=== PATIENT | male | born 1955 | race Caucasian/White ===

== ENCOUNTER 2017-03-25 07:05 | Inpatient (IN) | payer BC, OTHER ==
[2017-03-25] VITALS (15 sets, daily range): BP systolic 111–140; BP diastolic 76–100; PULSE 77–116; RESP 14–20; TEMP 97.6–98.6; O2SAT 98–100
[~2017-03-25] VITALS: Ht 190.5 cm; Wt 113.0 kg
[2017-03-25 08:01] LABS: AUTOMATED NEUTROPHIL # 4.5 TH/MM3 (1.8-7.7); BASOPHIL # 0.1 TH/MM3 (0-0.2); BASOPHIL % 0.8 % (0.0-2.0); EOSINOPHIL # 0.1 TH/MM3 (0-0.4); HEMATOCRIT 43.6 % (39.0-51.0); HEMOGLOBIN 14.4 GM/DL (13.0-17.0); LYMPH % 25.1 % (9.0-44.0); LYMPHOCYTE # 1.8 TH/MM3 (1.0-4.8); MEAN CELL VOLUME 96.9 FL (80.0-100.0); MEAN CORPUSCULAR HEMOGLOBIN 31.9 PG (27.0-34.0); MEAN PLATELET VOLUME 8.1 FL (7.0-11.0); MONO % 10.5 % (0.0-8.0); MONOCYTE # 0.8 TH/MM3 (0-0.9); NEUT % 62.6 % (16.0-70.0); PLATELET COUNT 267 TH/MM3 (150-450); RED CELL DISTRIBUTION WIDTH 15.1 % (11.6-17.2); WHITE BLOOD COUNT 7.2 TH/MM3 (4.0-11.0)
[2017-03-25 08:11] LABS: INTERNATIONAL NORMALIZED RATIO 1.2 RATIO; PROTHROMBIN TIME - PATIENT 12.6 SEC (9.8-11.6)
[2017-03-25 08:23] LABS: ALBUMIN 3.3 GM/DL (3.4-5.0); ALT (GPT) 54 U/L (12-78); AST (GOT) 38 U/L (15-37); BICARBONATE 25.5 MEQ/L (21.0-32.0); BLOOD UREA NITROGEN 22 MG/DL (7-18); CALCIUM 8.3 MG/DL (8.5-10.1); CHLORIDE 108 MEQ/L (98-107); GLOMERULAR FILTRATION RATE 56 ML/MIN (>89); GLUCOSE,RANDOM 104 MG/DL (74-106); SODIUM (NA) 141 MEQ/L (136-145)
--- NOTE | 2017-03-25 08:26 | RADRPT ---
EXAM DATE/TIME: 03/25/2017 07:40 [facility] COMPARISON: No previous studies available for comparison. INDICATIONS : Short of breath. MEDICAL HISTORY : A-fib. SURGICAL HISTORY : CABG. ENCOUNTER: Initial ACUITY: 3 weeks PAIN SCORE: 0/10 LOCATION: Bilateral chest FINDINGS: Single AP view of the chest. Prosthetic cardiac valve. Mild cardiac silhouette enlargement. Median st ernotomy wires. Lungs clear. No evidence of pleural effusion or pneumothorax. CONCLUSION: Mild cardiac silhouette enlargement. No acute cardiopulmonary disease identified. Ad Trimble MD on March 25, 2017 at 8:22 Board Certified Radiologist. This report was verified electronically.
[2017-03-25 08:32] LABS: ALKALINE PHOSPHATASE 115 U/L (45-117); TOTAL BILIRUBIN ADULT 0.6 MG/DL (0.2-1.0); TOTAL PROTEIN 7.7 GM/DL (6.4-8.2); TROPONIN I 0.05 NG/ML (0.02-0.05)
[2017-03-25] MEDS ORDERED: IOHEXOL 350 MG/ML 10 ML VIAL (for RAD DIAG) IVCONTRAST ONE (08:50)
--- NOTE | 2017-03-25 09:08 | RADRPT ---
EXAM DATE/TIME: 03/25/2017 08:30 [facility] COMPARISON: No previous studies available for comparison. INDICATIONS : Cough, chest tightness, sob IV CONTRAST: 70 cc Omnipaque 350 (iohexol) IV RADIATION DOSE: 34.52 CTDIvol (mGy) MEDICAL HISTORY : Cardiovascular disease. Afib SURGICAL HISTORY : CABG Valve replacement, CABGx 5 ENCOUNTER: Initial ACUITY: 1 week PAIN SCALE: 5/10 LOCATION: TECHNIQUE: Volumetric scanning of the chest was performed using a pulmonary embolism protocol MIP images were re constructed. Using automated exposure control and adjustment of the mA and/or kV according to patien t size, radiation dose was kept as low as reasonably achievable to obtain optimal diagnostic quality images. DICOM format image data is available electronically for review and comparison. Follow-up recommendations for detected pulmonary nodules are based at a minimum on nodule size and pa tient risk factors according to Fleischner Society Guidelines. FINDINGS: PULMONARY ARTERIES: There is cut off of enhancement of the posterior basilar ranges of the left pulmonary artery in the l ower lobe. No other filling defects are identified on the right or left. LUNGS: Mild groundglass opacity in the lungs bilaterally indicating possible mild pulmonary edema. PLEURAE: Very small bilateral pleural effusions. MEDIASTINUM: Coronary artery calcification. Multiple mildly prominent mediastinal lymph nodes are likely reactive, measuring less than 1 cm in short axis dimension. Prosthetic mitral valve. MUSCULOSKELETAL: Within normal limits for patient age. MISCELLANEOUS: The visualized upper abdominal organs demonstrate no acute abnormality. CONCLUSION: 1. Evidence of pulmonary emboli in the posterior branches of the left lower lobe. 2. Coronary artery calcification. 3. Very small bilateral pleural effusions and possible mild pulmonary edema. Ad Trimble MD on March 25, 2017 at 8:52 Board Certified Radiologist. This report was verified electronically.
[2017-03-25] MEDS ORDERED: HEPARIN SODIUM - IV 10,000 UNITS/10 ML VIAL IV PUSH ONE (09:30)
[2017-03-25] MEDS ORDERED: DILTIAZEM HCL 25 MG/5 ML VIAL IV ONE (09:30)
--- NOTE | 2017-03-25 09:37 | PD ---
HPI Chief Complaint: Cardiac Complaint Time Seen by Provider: 07:24 Travel History International Travel<30 days: No Contact w/Intl Traveler<30days: No Traveled to known affect area: No History of Present Illness HPI Patient is a 61 year old male, who reports history of CABG with 2 valve replacements, afib, who comes in complaining of SOB. He says he has not been feeling well for 3 weeks. He says he took some Penicillin a little while ago, but this did not help his symptoms. He says he came in today because he was unable to sleep last night because he was unable to breath. He says he is not on any anticoagulation or rate control medications. He denies any chest pain. He says he is short of breath on exertion. He denies leg swelling or leg pain. He says that he has flown back and forth from [place] a few times recently. Nothing seems to make his symptoms better. PFSH Past Medical History Atrial Fibrillation: Yes Past Surgical History Coronary Artery Bypass Graft: Yes Valve Replacement: Yes Social History Alcohol Use: No Tobacco Use: No Substance Use: No Allergies-Medications (Allergen,Severity, Reaction): Coded Allergies: No Allergy Information Available (Unverified , 03/25/17) Review of Systems Except as stated in HPI: all other systems reviewed are Neg General / Constitutional: No: Fever, Chills HENT: Positive: Congestion, No: Headaches Cardiovascular: Positive: Palpitations, No: Chest Pain or Discomfort Respiratory: Positive: Cough, Shortness of Breath Gastrointestinal: No: Nausea, Vomiting Genitourinary: No: Dysuria Musculoskeletal: No: Myalgias, Edema Skin: No Rash, No Change in Pigmentation Neurologic: No: Weakness, Dizziness, Syncope Physical Exam Narrative GENERAL: Awake and alert, in no acute distress. SKIN: Focused skin assessment warm/dry. No wounds or signs of infection. HEAD: Atraumatic. Normocephalic. EYES: Pupils equal and round. No scleral icterus. Extraocular movements intact. ENT: Mucous membranes pink and moist. NECK: Trachea midline. No JVD. CARDIOVASCULAR: Tachycardia. No murmur appreciated. RESPIRATORY: No accessory muscle use. Clear to auscultation. Breath sounds equal bilaterally. GASTROINTESTINAL: Abdomen soft, non-tender, nondistended. MUSCULOSKELETAL: No obvious deformities. No clubbing. No cyanosis. No edema. NEUROLOGICAL: Awake and alert. No obvious cranial nerve deficits. Motor grossly within normal limits. Normal speech. PSYCHIATRIC: Appropriate mood and affect; insight and judgment normal. Data Data Last Documented VS Vital Signs Date Time Temp Pulse Resp B/P (MAP) Pulse Ox O2 Delivery O2 Flow Rate FiO2 03/25/17 09:18 110 19 126/89 (101) 100 Room Air 03/25/17 08:52 98.2 Orders Orders Complete Blood Count With Diff (03/25/17 07:31) Comprehensive Metabolic Panel (03/25/17 07:31) B-Type Natriuretic Peptide (03/25/17 07:31) Act Partial Throm Time (Ptt) (03/25/17 07:31) Prothrombin Time / Inr (Pt) (03/25/17 07:31) Troponin I (03/25/17 07:31) Iv Access Insert/Monitor (03/25/17 07:31) Ecg Monitoring (03/25/17 07:31) Oximetry (03/25/17 07:31) Oxygen Administration (03/25/17 07:31) Chest, Single Ap (03/25/17 07:31) Ct Pulmonary Angiogram (03/25/17 07:31) Electrocardiogram (03/25/17 07:20) Iohexol 350 Inj (Omnipaque 350 Inj) (03/25/17 08:50) Heparin Inj (Heparin Inj) (03/25/17 09:30) Heparin-D5w 25,000 U/250 Ml (Heparin-D5w (03/25/17 09:30) Cbc No Diff, Includes Plts (03/28/17 06:00) Act Partial Throm Time (Ptt) (03/25/17 16:16) Occult Blood (Hemoccult) Stool (03/25/17 09:16) Diltiazem Inj (Cardizem Inj) (03/25/17 09:30) Labs Laboratory Tests Test 03/25/17 07:42 White Blood Count 7.2 TH/MM3 Red Blood Count 4.50 MIL/MM3 Hemoglobin 14.4 GM/DL Hematocrit 43.6 % Mean Corpuscular Volume 96.9 FL Mean Corpuscular Hemoglobin 31.9 PG Mean Corpuscular Hemoglobin Concent 33.0 % Red Cell Distribution Width 15.1 % Platelet Count 267 TH/MM3 Mean Platelet Volume 8.1 FL Neutrophils (%) (Auto) 62.6 % Lymphocytes (%) (Auto) 25.1 % Monocytes (%) (Auto) 10.5 % Eosinophils (%) (Auto) 1.0 % Basophils (%) (Auto) 0.8 % Neutrophils # (Auto) 4.5 TH/MM3 Lymphocytes # (Auto) 1.8 TH/MM3 Monocytes # (Auto) 0.8 TH/MM3 Eosinophils # (Auto) 0.1 TH/MM3 Basophils # (Auto) 0.1 TH/MM3 CBC Comment DIFF FINAL Differential Comment Prothrombin Time 12.6 SEC Prothromb Time International Ratio 1.2 RATIO Activated Partial Thromboplast Time 26.1 SEC Blood Urea Nitrogen 22 MG/DL Creatinine 1.30 MG/DL Random Glucose 104 MG/DL Total Protein 7.7 GM/DL Albumin 3.3 GM/DL Calcium Level 8.3 MG/DL Alkaline Phosphatase 115 U/L Aspartate Amino Transf (AST/SGOT) 38 U/L Alanine Aminotransferase (ALT/SGPT) 54 U/L Total Bilirubin 0.6 MG/DL Sodium Level 141 MEQ/L Potassium Level 4.3 MEQ/L Chloride Level 108 MEQ/L Carbon Dioxide Level 25.5 MEQ/L Anion Gap 8 MEQ/L Estimat Glomerular Filtration Rate 56 ML/MIN Troponin I 0.05 NG/ML B-Type Natriuretic Peptide 270 PG/ML MDM Medical Decision Making Medical Screen Exam Complete: Yes Emergency Medical Condition: Yes Interpretation(s) ECG shows atrial fibrillation at a rate of 118. Differential Diagnosis PE versus A. fib with RVR versus electrolyte abnormality versus ACS Narrative Course Patient is a 61-year-old male with history of A. fib, CABG, 2 valve replacements , not on anticoagulation, who comes in complaining of shortness of breath. Exam shows tachycardia. ECG shows A. fib with RVR. IV established, labs sent. CTA performed shows evidence of pulmonary embolus. Last 24 hours Impressions Chest X-Ray 03/25/17730 Signed Impressions: Service Date/Time: Saturday, March 25, 2017 07:40 - CONCLUSION: Mild cardiac silhouette enlargement. No acute cardiopulmonary disease identified. Ad Trimble MD CT Angiography 03/25/1731 Signed Impressions: Service Date/Time: Saturday, March 25, 2017 08:30 - CONCLUSION: 1. Evidence of pulmonary emboli in the posterior branches of the left lower lobe. 2. Coronary artery calcification. 3. Very small bilateral pleural effusions and possible mild pulmonary edema. Ad Trimble MD Patient started on heparin. Given a dose of Cardizem. Patient also has evidence of CHF. He'll be admitted for further management. Diagnosis Primary Impression: Pulmonary emboli Qualified Codes: I26.99 - Other pulmonary embolism without acute cor pulmonale Additional Impressions: Atrial fibrillation with RVR CHF (congestive heart failure) Qualified Codes: I50.9 - Heart failure, unspecified Admitting Information Admitting Physician Requests: it Angelita Gray MD Mar 25, 2017 09:37
[2017-03-25] MEDS: HEPARIN-D5W 25,000 U/250 ML 250 ML IV PRN ×2 (09:41→23:30)
[2017-03-25] MEDS ORDERED: SODIUM CHLORIDE 0.9% FLUSH 10 ML FLUSH IV FLUSH PRN (11:30)
[2017-03-25] MEDS ORDERED: ONDANSETRON HCL 4 MG/2 ML VIAL IVP PRN (11:30)
[2017-03-25] MEDS ORDERED: SENNOSIDES 8.6 MG TAB PO PRN (11:30)
[2017-03-25] MEDS ORDERED: BISACODYL 10 MG SUPP RECTAL PRN (11:30)
[2017-03-25] MEDS ORDERED: NALOXONE HCL 0.4 MG/ML AMP IV PUSH PRN (11:30)
[2017-03-25] MEDS ORDERED: MAGNESIUM HYDROXIDE SUSP 30 ML CUP PO PRN (11:30)
[2017-03-25] MEDS ORDERED: ACETAMINOPHEN 325 MG TAB PO PRN (11:30)
[2017-03-25] MEDS ORDERED: LACTULOSE SYRUP 20 GM/30 ML CUP PO PRN (11:30)
--- NOTE | 2017-03-25 11:43 | HHI.HP ---
[facility] Service [facility] Primary Care Physician No Primary Care Physician Admission Diagnosis Afib with RVR, PE Diagnoses: Travel History International Travel<30 Days: No Contact w/Intl Traveler <30 Da: No Traveled to Known Affected Are: No History of Present Illness 61-year-old male with a past medical history significant for CAD status post CABG 6 months ago and a lifelong history of atrial fibrillation not on any anticoagulation presents to the emergency department with a one-week history of worsening shortness of breath. The patient reports that he has extreme shortness of breath when lying down that is interfering with his sleep. He also states he has dyspnea on exertion. He reports he just recovered from an upper respiratory infection. The patient was found to be in atrial fibrillation with RVR on arrival to the emergency department. He was given 1 dose of IV diltiazem with subsequent weight control. CTA showed pulmonary emboli in the posterior branches of the left lower lobe. Review of Systems Denies fever or chills Denies blurry vision, otorrhea, rhinorrhea Denies sore throat and cough No chest pain, palpitations, positive shortness of breath No abdominal pain Denies constipation/diarrhea/nausea/vomiting Denies muscle pain/weakness No rashes Past Family Social History Past Medical History Atrial fibrillation Coronary artery disease Past Surgical History Status post CABG 4 with AVR, MVR 6 months ago Reported Medications None Allergies: Coded Allergies: No Allergy Information Available (Unverified , 03/25/17) Family History Negative for CAD/DM Social History Denies alcohol, tobacco and illicit drugs Physical Exam Vital Signs Vital Signs Date Time Temp Pulse Resp B/P (MAP) Pulse Ox O2 Delivery O2 Flow Rate FiO2 03/25/17 09:18 110 19 126/89 (101) 100 Room Air 03/25/17 08:52 98.2 03/25/17 07:32 90 19 140/100 (113) 99 Room Air 03/25/17 07:32 Room Air Physical Exam GENERAL: male lying in bed sleeping SKIN: No rashes, ecchymoses or lesions. Cool and dry. HEAD: Atraumatic. Normocephalic. No temporal or scalp tenderness. EYES: Pupils equal round and reactive. Extraocular motions intact. No scleral icterus. No injection or drainage. ENT: Nose without bleeding, purulent drainage or septal hematoma. Throat without erythema, tonsillar hypertrophy or exudate. Uvula midline. Airway patent. NECK: Trachea midline. No JVD or lymphadenopathy. Supple, nontender, no meningeal signs. CARDIOVASCULAR: Irregularly irregular rate without murmurs, gallops, or rubs. RESPIRATORY: Clear to auscultation. Breath sounds equal bilaterally. No wheezes , rales, or rhonchi. GASTROINTESTINAL: Abdomen soft, non-tender, nondistended. No hepato-splenomegaly , or palpable masses. No guarding. MUSCULOSKELETAL: Extremities without clubbing, cyanosis, or edema. No joint tenderness, effusion, or edema noted. No calf tenderness. NEUROLOGICAL: Awake and alert. Cranial nerves II through XII intact. Motor and sensory grossly within normal limits. Normal speech. Laboratory Laboratory Tests Test 03/25/17 07:42 White Blood Count 7.2 Red Blood Count 4.50 Hemoglobin 14.4 Hematocrit 43.6 Mean Corpuscular Volume 96.9 Mean Corpuscular Hemoglobin 31.9 Mean Corpuscular Hemoglobin Concent 33.0 Red Cell Distribution Width 15.1 Platelet Count 267 Mean Platelet Volume 8.1 Neutrophils (%) (Auto) 62.6 Lymphocytes (%) (Auto) 25.1 Monocytes (%) (Auto) 10.5 Eosinophils (%) (Auto) 1.0 Basophils (%) (Auto) 0.8 Neutrophils # (Auto) 4.5 Lymphocytes # (Auto) 1.8 Monocytes # (Auto) 0.8 Eosinophils # (Auto) 0.1 Basophils # (Auto) 0.1 CBC Comment DIFF FINAL Differential Comment Prothrombin Time 12.6 Prothromb Time International Ratio 1.2 Activated Partial Thromboplast Time 26.1 Blood Urea Nitrogen 22 Creatinine 1.30 Random Glucose 104 Total Protein 7.7 Albumin 3.3 Calcium Level 8.3 Alkaline Phosphatase 115 Aspartate Amino Transf (AST/SGOT) 38 Alanine Aminotransferase (ALT/SGPT) 54 Total Bilirubin 0.6 Sodium Level 141 Potassium Level 4.3 Chloride Level 108 Carbon Dioxide Level 25.5 Anion Gap 8 Estimat Glomerular Filtration Rate 56 Troponin I 0.05 B-Type Natriuretic Peptide 270 Result Diagram: 03/25/17 0742 03/25/17 0742 Caprini VTE Risk Assessment Caprini VTE Risk Assessment: Mod/High Risk (score >= 2) Caprini Risk Assessment Model Point Value = 1 Point Value = 2 Point Value = 3 Point Value = 5 Age 41-60 Minor surgery BMI > 25 kg/m2 Swollen legs Varicose veins or History of unexplained or recurrent spontaneous Oral contraceptives or hormone replacement Sepsis (< 1 month) Serious lung disease, including pneumonia (< 1 month) Abnormal pulmonary function Acute myocardial infarction Congestive heart failure (< 1 month) History of inflammatory bowel disease Medical patient at bed rest Age 61-74 Arthroscopic surgery Major open surgery (> 45 min) Laparoscopic surgery (> 45 min) Malignancy Confined to bed (> 72 hours) Immobilizing plaster cast Central venous access Age >= 75 History of VTE Family history of VTE Factor V Leiden Prothrombin [id number] Lupus anticoagulant Anticardiolipin antibodies Elevated serum homocysteine Heparin-induced thrombocytopenia Other congenital or acquired thrombophilia Stroke (< 1 month) Elective arthroplasty Hip, pelvis, or leg fracture Acute spinal cord injury (< 1 month) Prophylaxis Regimen Total Risk Factor Score Risk Level Prophylaxis Regimen 0-1 Low Early ambulation 2 Moderate Order ONE of the following: *Sequential Compression Device (SCD) *Heparin 5000 units SQ BID 3-4 Higher Order ONE of the following medications: *Heparin 5000 units SQ TID *Enoxaparin/Lovenox 40 mg SQ daily (WT < 150 kg, CrCl > 30 mL/min) *Enoxaparin/Lovenox 30 mg SQ daily (WT < 150 kg, CrCl > 10-29 mL/min) *Enoxaparin/Lovenox 30 mg SQ BID (WT < 150 kg, CrCl > 30 mL/min) AND/OR *Sequential Compression Device (SCD) 5 or more Highest Order ONE of the following medications: *Heparin 5000 units SQ TID (Preferred with Epidurals) *Enoxaparin/Lovenox 40 mg SQ daily (WT < 150 kg, CrCl > 30 mL/min) *Enoxaparin/Lovenox 30 mg SQ daily (WT < 150 kg, CrCl > 10-29 mL/min) *Enoxaparin/Lovenox 30 mg SQ BID (WT < 150 kg, CrCl > 30 mL/min) AND *Sequential Compression Device (SCD) Assessment and Plan Assessment and Plan Assessment/plan: 1. Pulmonary embolism Heparin drip Patient resistant to oral anticoagulation at this time, states that his doctors have told him he does not need to be on anticoagulation for his atrial fibrillation Transition to oral anticoagulation after further discussions with patient 2. Atrial fibrillation with rapid ventricular response EKG shows A. fib with RVR, heart rate 118 Status post IV diltiazem in the ED with rate control Telemetry Patient reports he has never had RVR in the past and does not require rate controlling medications 3. Shortness of breath May be secondary to PE versus CHF BNP elevated at 270 Echo pending 4. CAD Patient reports he is status post 2 valve replacements and CABG 4 but that he was not supposed to be on any medications Records requested from his Hospital in [facility] healthy diet Electrolytes: Monitor and replete when necessary Heparin drip Physician Certification 2 Midnight Certification Type: Admission for Inpatient Services Order for Inpatient Services The services are ordered in accordance with Medicare regulations or non- Medicare payer requirements, as applicable. In the case of services not specified as inpatient-only, they are appropriately provided as inpatient services in accordance with the 2-midnight benchmark. Estimated LOS (days): 2 2 days is the estimated time the patient will need to remain in the hospital, assuming treatment plan goals are met and no additional complications. Post-Hospital Plan: Not yet determined Sofia Porter MD Mar 25, 2017 11:43
[2017-03-25] MEDS: DILTIAZEM HCL 30 MG TAB PO SCH ×3 (14:12→23:24)
[2017-03-25] MEDS: ASPIRIN 325 MG TAB PO SCH (14:12)
[2017-03-25] MEDS: MORPHINE SULFATE 2 MG/ML INJ IV PUSH PRN ×2 (14:12→20:37)
--- NOTE | 2017-03-25 17:11 | EKG ---
Date Performed: 03/25/2017 Time Performed: 07:20:10 PTAGE: 61 years EKG: ATRIAL FIBRILLATION WITH RAPID VENTRICULAR RESPONSE NONSPECIFIC T-WAVE ABNORMALITY ABNORMAL ECG NO PREVIOUS TRACING DOCTOR: Valentino Rutledge Interpretating Date/Time 03/25/2017 17:10:29
[2017-03-25 19:08] LABS: TROPONIN I 0.04 NG/ML (0.02-0.05)
[2017-03-25] MEDS: SODIUM CHLORIDE 0.9% FLUSH 10 ML FLUSH IV FLUSH SCH (20:37)
[2017-03-25] MEDS: DOCUSATE SODIUM 50 MG/SENNA 8.6 MG TAB PO SCH (21:00)
[2017-03-26] VITALS (26 sets, daily range): BP systolic 104–144; BP diastolic 75–89; PULSE 60–100; RESP 18–20; TEMP 97.7–98.4; O2SAT 94–100
[2017-03-26] MEDS: MORPHINE SULFATE 2 MG/ML INJ IV PUSH PRN (01:36)
[2017-03-26 02:12] LABS: BASOPHIL % 0.6 % (0.0-2.0); EOSINOPHIL # 0.1 TH/MM3 (0-0.4); EOSINOPHIL % 1.4 % (0.0-4.0); HEMATOCRIT 39.8 % (39.0-51.0); HEMOGLOBIN 13.6 GM/DL (13.0-17.0); LYMPH % 36.9 % (9.0-44.0); LYMPHOCYTE # 2.9 TH/MM3 (1.0-4.8); MEAN CELL VOLUME 95.9 FL (80.0-100.0); MEAN CORPUSCULAR HEMOGLOBIN 32.7 PG (27.0-34.0); MEAN CORPUSCULAR HGB CONC 34.1 % (32.0-36.0); MEAN PLATELET VOLUME 8.5 FL (7.0-11.0); MONO % 9.5 % (0.0-8.0); MONOCYTE # 0.7 TH/MM3 (0-0.9); NEUT % 51.6 % (16.0-70.0); PLATELET COUNT 250 TH/MM3 (150-450); RED BLOOD COUNT 4.15 MIL/MM3 (4.50-5.90); RED CELL DISTRIBUTION WIDTH 14.9 % (11.6-17.2); WHITE BLOOD COUNT 7.8 TH/MM3 (4.0-11.0)
[2017-03-26 02:32] LABS: BICARBONATE 26.4 MEQ/L (21.0-32.0); CALCIUM 8.7 MG/DL (8.5-10.1); CREATININE 1.27 MG/DL (0.60-1.30)
[2017-03-26 02:36] LABS: TROPONIN I 0.06 NG/ML (0.02-0.05)
[2017-03-26] MEDS: DILTIAZEM HCL 30 MG TAB PO SCH ×3 (06:17→18:00)
[2017-03-26 08:11] LABS: TROPONIN I 0.06 NG/ML (0.02-0.05)
[2017-03-26] MEDS: ASPIRIN 325 MG TAB PO SCH (08:35)
[2017-03-26] MEDS: SODIUM CHLORIDE 0.9% FLUSH 10 ML FLUSH IV FLUSH SCH ×2 (08:35→21:30)
[2017-03-26] MEDS: DOCUSATE SODIUM 50 MG/SENNA 8.6 MG TAB PO SCH ×2 (08:37→21:30)
--- NOTE | 2017-03-26 10:16 | HHI.PR ---
Subjective Remarks Follow-up Gunjan hensley with RVR/PE 03/26/17-patient seen and examined, complained of severe shortness of breath and chest pain earlier this morning, however resolved. Objective Vitals Vital Signs Date Time Temp Pulse Resp B/P (MAP) Pulse Ox O2 Delivery O2 Flow Rate FiO2 03/26/17 07:01 96 03/26/17 06:09 97 03/26/17 05:01 81 03/26/17 04:00 98.2 96 20 116/89 (98) 95 03/26/17 04:00 96 03/26/17 03:00 88 03/26/17 02:00 92 03/26/17 01:53 16 03/26/17 01:00 100 03/26/17 00:04 95 Nasal Cannula 2.00 03/26/17 00:03 98.2 98 20 114/87 (96) 95 03/26/17 00:00 98 03/25/17 23:00 96 03/25/17 22:00 106 03/25/17 21:00 98 03/25/17 20:00 97.9 113 20 111/95 (100) 98 03/25/17 20:00 104 03/25/17 19:00 98 03/25/17 18:00 102 03/25/17 17:00 100 03/25/17 16:00 106 03/25/17 16:00 98.6 113 18 118/96 (103) 98 03/25/17 15:00 112 03/25/17 13:00 116 03/25/17 12:37 03/25/17 12:00 97.6 77 16 122/76 (91) 99 03/25/17 11:00 98 14 136/81 (99) 100 Room Air I/O 03/25/17 03/25/17 03/25/17 03/26/17 03/26/17 03/26/17 07:00 15:00 23:00 07:00 15:00 23:00 Intake Total 480 ml 1521 ml Output Total 325 ml 1400 ml Balance 155 ml 121 ml Intake Oral 480 ml 1170 ml IV Total 351 ml Output Urine Total 325 ml 1400 ml Result Diagram: 03/26/17 0136 03/26/17 0136 Imaging Last Impressions Chest X-Ray 03/25/17 0731 Signed Impressions: Service Date/Time: Saturday, March 25, 2017 07:40 - CONCLUSION: Mild cardiac silhouette enlargement. No acute cardiopulmonary disease identified. Ad Trimble MD CT Angiography 03/25/17 0731 Signed Impressions: Service Date/Time: Saturday, March 25, 2017 08:30 - CONCLUSION: 1. Evidence of pulmonary emboli in the posterior branches of the left lower lobe. 2. Coronary artery calcification. 3. Very small bilateral pleural effusions and possible mild pulmonary edema. Ad Trimble MD Objective Remarks GENERAL: NAD SKIN: Warm and dry. HEAD: Normocephalic. EYES: No scleral icterus. No injection or drainage. NECK: Supple, trachea midline. No JVD or lymphadenopathy. CARDIOVASCULAR: Irregular Regular rate and rhythm without murmurs, gallops, or rubs. RESPIRATORY: Breath sounds equal bilaterally. No accessory muscle use. GASTROINTESTINAL: Abdomen soft, non-tender, nondistended. MUSCULOSKELETAL: No cyanosis, or edema. BACK: Nontender without obvious deformity. No CVA tenderness. A/P Problem List: (1) Pulmonary emboli ICD Code: I26.99 - Other pulmonary embolism without acute cor pulmonale Status: Acute (2) Atrial fibrillation with RVR ICD Code: I48.91 - Unspecified atrial fibrillation Status: Acute Assessment and Plan 61-year-old man with Pulmonary embolism Currently on heparin drip Consult hematology Consider hypercoagulable studies inpatient versus outpatient Check bilateral lower extremity Doppler to rule out DVT Atrial fibrillation with RVR Status post Cardizem IV in ED Consult cardiology for further assistance 2-D echo pending Elevated troponin level May be secondary to PE versus others 2-D echo pending Cardiology consultation pending Coronary artery disease Patient reports he is status post 2 valve replacements and CABG 4 but that he was not supposed to be on any medications Records requested from his Hospital in [place] Acute mood disorder Psychiatry consultation pending DVT prophylaxis:Heparin Problem Qualifiers (1) Pulmonary emboli: Qualified Codes: I26.99 - Other pulmonary embolism without acute cor pulmonale Ghanshyam Morales MD Mar 26, 2017 10:16
--- NOTE | 2017-03-26 11:10 | RADRPT ---
EXAM DATE/TIME: 03/26/2017 10:35 [facility] COMPARISON: No previous studies available for comparison. INDICATIONS : Pulmonary embolism. MEDICAL HISTORY : Atrial fibrillation. Pulmonary embolism. Anticoagulant therapy, Heparin. SURGICAL HISTORY : CABG. Valve replacement. ENCOUNTER: Initial ACUITY: 1 day PAIN SCORE: 0/10 LOCATION: Bilateral legs. TECHNIQUE: Venous ultrasound of the left and right leg was performed from the inguinal ligament to the proximal calf. Real-time, color Doppler and spectral tracing, compression and augmentation techniques were us ed. FINDINGS: RIGHT LEG: There is normal compressibility of the deep venous system from the inguinal region to the proximal ca lf. No echogenic clot is seen in the lumen of the common femoral, femoral, popliteal, and posterior tibial veins. There is a normal response of the venous system to proximal and distal augmentation an d respiration. Iliac vein with normal flow LEFT LEG: There is normal compressibility of the deep venous system from the inguinal region to the proximal ca lf. No echogenic clot is seen in the lumen of the common femoral, femoral, popliteal, and posterior tibial veins. There is a normal response of the venous system to proximal and distal augmentation an d respiration. Iliac vein open and patent CONCLUSION: Normal examination. No evidence DVT Casper Martino MD on March 26, 2017 at 11:06 Board Certified Radiologist. This report was verified electronically.
--- NOTE | 2017-03-26 11:17 | PD.PSY.CON ---
Provisional Diagnosis Admission Date Mar 25, 2017 at 10:17 [place] I. Adjustment disorder with depressed mood History of Present Illness Service Psychiatry Consult Requested By Attending MMarline. Reason for Consult Assessment Primary Care Physician No Primary Care Physician HPI Patient is a 61-year-old white male who lives in [place] is done here visiting his sister. Appears she is to some cardiac issues. He states he had a cardiac transplant done in January. He is somewhat dissatisfied with that he feels are not satisfactory results from the surgery. He denies any prior psychiatric contact hospitalization psychotropic medications he denies any alcohol or drug use. He denies any suicidality homicidality voices or visions. At times he is somewhat confrontational and perhaps somewhat sarcastic that might reflect a regional attitude. He is well oriented in all 4 spheres. At this time I feel patient does have capacity to make decisions concerning his care. He may have a little underlying depression related 12 of this lady appears to be coping with it. He feels are staff are doing their job with him. At this time I would not recommend any medications. At this time I will sign off thanks for consult please reconsult as necessary Review of Systems Constitutional: DENIES: Diaphoretic episodes, Fatigue, Fever, Weight gain, Weight loss, Chills, Dizziness, Change in appetite, Night Sweats Endocrine: DENIES: Heat/cold intolerance, Polydipsia, Polyuria, Polyphagia Eyes: DENIES: Blurred vision, Diplopia, Eye inflammation, Eye pain, Vision loss , Photosensitivity, Double Vision Ears, nose, mouth, throat: DENIES: Tinnitus, Hearing loss, Vertigo, Nasal discharge, Oral lesions, Throat pain, Hoarseness, Ear Pain, Running Nose, Epistaxis, Sinus Pain, Toothache, Odynophagia Cardiovascular: DENIES: Chest pain, Palpitations, Syncope, Dyspnea on Exertion , PND, Lower Extremity Edema, Orthopnea, Claudication Gastrointestinal: DENIES: Abdominal pain, Black stools, Bloody stools, Constipation, Diarrhea, Nausea, Vomiting, Difficulty Swallowing, Anorexia Genitourinary: DENIES: Sexual dysfunction, Urinary frequency, Urinary incontinence, Urgency, Hematuria, Dysuria, Nocturia, Penile Discharge, Testicular Pain, Testicular Swelling Musculoskeletal: DENIES: Joint pain, Muscle aches, Stiffness, Joint Swelling, Back pain, Neck pain Integumentary: DENIES: Abnormal pigmentation, Nail changes, Pruritus, Rash Hematologic/lymphatic: DENIES: Bruising, Lymphadenopathy Immunologic/allergic: DENIES: Eczema, Urticaria Neurologic: DENIES: Abnormal gait, Headache, Localized weakness, Paresthesias, Seizures, Speech Problems, Tremor, Poor Balance Psychiatric: DENIES: Anxiety, Confusion, Mood changes, Depression, Hallucinations, Agitation, Suicidal Ideation, Homicidal Ideation, Delusions Past Family Social History Coded Allergies: No Allergy Information Available (Unverified , 03/25/17) Past Medical History Multiple please see MedSurg assessments Current Medications Medications (Trade) Dose Ordered Sig/Linwood Route Start Time Stop Time Status Last Admin Heparin Sodium/ Dextrose 250 ml @ 18 mls/hr TITRATE PRN IV 03/25/17 09:30 03/25/17 23:30 (NS Flush) 2 ml UNSCH PRN IV FLUSH 03/25/17 11:30 (NS Flush) 2 ml BID IV FLUSH 03/25/17 21:00 03/26/17 08:35 (Tylenol) 650 mg Q4H PRN PO 03/25/17 11:30 (Zofran Inj) 4 mg Q6H PRN IVP 03/25/17 11:30 (Narcan Inj) 0.4 mg UNSCH PRN IV PUSH 03/25/17 11:30 (Zoila-Colace) 1 tab BID PO 03/25/17 21:00 (Milk Of Magnesia Liq) 30 ml Q12H PRN PO 03/25/17 11:30 (Senokot) 17.2 mg Q12H PRN PO 03/25/17 11:30 (Dulcolax Supp) 10 mg DAILY PRN RECTAL 03/25/17 11:30 (Lactulose Liq) 30 ml DAILY PRN PO 03/25/17 11:30 (Cardizem) 30 mg Q6HR PO 03/25/17 13:45 03/26/17 06:17 (Aspirin) 325 mg DAILY PO 03/25/17 13:45 03/26/17 08:35 (Morphine Inj) 2 mg Q3H PRN IV PUSH 03/25/17 13:30 03/26/17 01:36 Family Psych History Denies any family psychiatric history Social History Lives with his has 4 grown sons Patient's Strengths (min. 2) Patient verbal label axis healthcare Physical Exam Please see MedSurg assessments Vital Signs Vital Signs Date Time Temp Pulse Resp B/P (MAP) Pulse Ox O2 Delivery O2 Flow Rate FiO2 03/26/17 10:31 95 03/26/17 07:01 96 03/26/17 04:00 98.2 20 116/89 (98) 03/26/17 00:04 Nasal Cannula 2.00 I/O 03/26/17 03/26/17 03/27/17 08:00 16:00 00:00 Intake Total 1321 ml Output Total 1400 ml Balance -79 ml Lab Results Test 03/25/17 18:15 03/26/17 01:36 03/26/17 07:00 Activated Partial Thromboplast Time 77.3 SEC 52.7 SEC 58.3 SEC Total Creatine Kinase 68 U/L 65 U/L 57 U/L Troponin I 0.04 NG/ML 0.06 NG/ML 0.06 NG/ML White Blood Count 7.8 TH/MM3 Red Blood Count 4.15 MIL/MM3 Hemoglobin 13.6 GM/DL Hematocrit 39.8 % Mean Corpuscular Volume 95.9 FL Mean Corpuscular Hemoglobin 32.7 PG Mean Corpuscular Hemoglobin Concent 34.1 % Red Cell Distribution Width 14.9 % Platelet Count 250 TH/MM3 Mean Platelet Volume 8.5 FL Neutrophils (%) (Auto) 51.6 % Lymphocytes (%) (Auto) 36.9 % Monocytes (%) (Auto) 9.5 % Eosinophils (%) (Auto) 1.4 % Basophils (%) (Auto) 0.6 % Neutrophils # (Auto) 4.0 TH/MM3 Lymphocytes # (Auto) 2.9 TH/MM3 Monocytes # (Auto) 0.7 TH/MM3 Eosinophils # (Auto) 0.1 TH/MM3 Basophils # (Auto) 0.0 TH/MM3 CBC Comment DIFF FINAL Differential Comment Blood Urea Nitrogen 19 MG/DL Creatinine 1.27 MG/DL Random Glucose 93 MG/DL Calcium Level 8.7 MG/DL Sodium Level 140 MEQ/L Potassium Level 4.2 MEQ/L Chloride Level 107 MEQ/L Carbon Dioxide Level 26.4 MEQ/L Anion Gap 7 MEQ/L Estimat Glomerular Filtration Rate 57 ML/MIN Mental Status Examination Appearance: Appropriate Consciousness: Alert Orientation: x4 Motor Activity: Other (patient laying in bed unable to ascertain gait) Speech: Unremarkable Language: Adequate Fund of Knowledge: Adequate Attention and Concentration: Adequate Memory: Unremarkable Mood: Appropriate Affect: Other (good range and intensity) Thought Process & Associations: Intact Thought Content: Appropriate Hallucination Type: None Delusion Type: None Suicidal Ideation: No Suicidal Plan: No Suicidal Intention: No Homicidal Ideation: No Homicidal Plan: No Homicidal Intention: No Insight: Adequate Judgment: Adequate Assessment & Plan Problem List: (1) Acute adjustment disorder with depressed mood ICD Codes: F43.21 - Adjustment disorder with depressed mood Assessment & Plan Estimated LOS: days if this may feel patient's capacity to make decisions concerning his care and his treatment. I see no indication for any psychotropic medications. Thus I'll sign off the present time thanks for consult Discharge Planning See above Request HC Surrog/Guard Advoc?: No Ray Maxwell MD Mar 26, 2017 11:17
--- NOTE | 2017-03-26 11:59 | PD.CONS ---
HPI Consult Requested By Primary Care Physician No Primary Care Physician History of Present Illness 61-year-old male consulted due to AFib. His past medical history significant for CAD s/p CABG and Valve Replacement on July 2016, atrial fibrillation on NO anticoagulation that presented to the emergency department with a one-week history of worsening shortness of breath. The patient reports that he has extreme shortness of breath when lying down that is interfering with his sleep. He also states he has dyspnea on exertion. He reports he just recovered from an upper respiratory infection. The patient was found to be in atrial fibrillation with RVR on arrival to the emergency department. He was given 1 dose of IV diltiazem with subsequent weight control. CTA showed pulmonary emboli in the posterior branches of the left lower lobe. Pt is visiting from [place], he drove all the way. Review of Systems Consitutional: COMPLAINS OF: Fatigue, DENIES: Fever, Chills, Weight gain, Weight loss Eyes: DENIES: Amaurosis Fugax, Change in vision HEENT: DENIES: Lightheadedness, Change in hearing Respiratory: COMPLAINS OF: Shortness of breath, DENIES: See HPI, Cough, Snoring , Wheezing, Sputum production Cardiovascular: DENIES: See HPI, Chest pain, Palpitations, Syncope, Tachycardia Gastrointestinal: DENIES: Nausea, Vomiting, Change in bowel habits, Reflux, Bloody stools, Melena Genitourinary: DENIES: Urinary incontinence, Difficulty voiding Integumentary: DENIES: Rash Neurologic: DENIES: Tingling or numbness, Memory problems, Poor Balance, Stroke symptoms Musculoskeletal: DENIES: Joint pain, Muscle pain, Limited range of motion, Back pain Psychiatric: DENIES: Anxiety, Depression, Sleep disturbances Hematologic: DENIES: Bruising tendencies, Bleeding tendencies Endocrine: DENIES: Weight gain, Weight loss, Thyroid disease Past Family Social History Allergies: Coded Allergies: No Allergy Information Available (Unverified , 03/25/17) Past Medical History Atrial fibrillation Coronary artery disease Past Surgical History Status post CABG 4 with AVR, MVR 6 months ago Active Ordered Medications Current Medications Medications (Trade) Dose Ordered Sig/Linwood Route Start Time Stop Time Status Last Admin Heparin Sodium/ Dextrose 250 ml @ 18 mls/hr TITRATE PRN IV 03/25/17 09:30 03/25/17 23:30 (NS Flush) 2 ml UNSCH PRN IV FLUSH 03/25/17 11:30 (NS Flush) 2 ml BID IV FLUSH 03/25/17 21:00 03/26/17 08:35 (Tylenol) 650 mg Q4H PRN PO 03/25/17 11:30 (Zofran Inj) 4 mg Q6H PRN IVP 03/25/17 11:30 (Narcan Inj) 0.4 mg UNSCH PRN IV PUSH 03/25/17 11:30 (Zoila-Colace) 1 tab BID PO 03/25/17 21:00 (Milk Of Magnesia Liq) 30 ml Q12H PRN PO 03/25/17 11:30 (Senokot) 17.2 mg Q12H PRN PO 03/25/17 11:30 (Dulcolax Supp) 10 mg DAILY PRN RECTAL 03/25/17 11:30 (Lactulose Liq) 30 ml DAILY PRN PO 03/25/17 11:30 (Cardizem) 30 mg Q6HR PO 03/25/17 13:45 03/26/17 06:17 (Aspirin) 325 mg DAILY PO 03/25/17 13:45 03/26/17 08:35 (Morphine Inj) 2 mg Q3H PRN IV PUSH 03/25/17 13:30 03/26/17 01:36 Family History Negative for CAD/DM Social History Denies alcohol, tobacco and illicit drugs Physical Exam Vital Signs Vital Signs Date Time Temp Pulse Resp B/P (MAP) Pulse Ox O2 Delivery O2 Flow Rate FiO2 03/26/17 11:43 97.8 80 18 116/87 (97) 96 03/26/17 11:01 89 03/26/17 10:31 95 03/26/17 10:00 92 03/26/17 09:00 98 03/26/17 08:15 98.0 86 18 119/80 (93) 94 03/26/17 08:15 94 Room Air 03/26/17 08:00 86 03/26/17 07:01 96 03/26/17 06:09 97 03/26/17 05:01 81 03/26/17 04:00 98.2 96 20 116/89 (98) 95 03/26/17 04:00 96 03/26/17 03:00 88 03/26/17 02:00 92 03/26/17 01:53 16 03/26/17 01:00 100 03/26/17 00:04 95 Nasal Cannula 2.00 03/26/17 00:03 98.2 98 20 114/87 (96) 95 03/26/17 00:00 98 03/25/17 23:00 96 03/25/17 22:00 106 03/25/17 21:00 98 03/25/17 20:00 97.9 113 20 111/95 (100) 98 03/25/17 20:00 104 03/25/17 19:00 98 03/25/17 18:00 102 03/25/17 17:00 100 03/25/17 16:00 106 03/25/17 16:00 98.6 113 18 118/96 (103) 98 03/25/17 15:00 112 03/25/17 13:00 116 03/25/17 12:37 03/25/17 12:00 97.6 77 16 122/76 (91) 99 Physical Exam GENERAL: Well-nourished, well-developed patient. SKIN: Warm and dry. HEAD: Normocephalic. EYES: No scleral icterus. No injection or drainage. NECK: Supple, trachea midline. No JVD or lymphadenopathy. CARDIOVASCULAR: Regular rate and rhythm without murmurs, gallops, or rubs. RESPIRATORY: Breath sounds equal bilaterally. No accessory muscle use. GASTROINTESTINAL: Abdomen soft, non-tender, nondistended. EXTREMITIES: No cyanosis, or edema. NEUROLOGICAL: Awake, alert, and oriented x 3. Non-focal. Laboratory Laboratory Tests Test 03/25/17 18:15 03/26/17 01:36 03/26/17 07:00 Activated Partial Thromboplast Time 77.3 52.7 58.3 Total Creatine Kinase 68 65 57 Troponin I 0.04 0.06 0.06 White Blood Count 7.8 Red Blood Count 4.15 Hemoglobin 13.6 Hematocrit 39.8 Mean Corpuscular Volume 95.9 Mean Corpuscular Hemoglobin 32.7 Mean Corpuscular Hemoglobin Concent 34.1 Red Cell Distribution Width 14.9 Platelet Count 250 Mean Platelet Volume 8.5 Neutrophils (%) (Auto) 51.6 Lymphocytes (%) (Auto) 36.9 Monocytes (%) (Auto) 9.5 Eosinophils (%) (Auto) 1.4 Basophils (%) (Auto) 0.6 Neutrophils # (Auto) 4.0 Lymphocytes # (Auto) 2.9 Monocytes # (Auto) 0.7 Eosinophils # (Auto) 0.1 Basophils # (Auto) 0.0 CBC Comment DIFF FINAL Differential Comment Blood Urea Nitrogen 19 Creatinine 1.27 Random Glucose 93 Calcium Level 8.7 Sodium Level 140 Potassium Level 4.2 Chloride Level 107 Carbon Dioxide Level 26.4 Anion Gap 7 Estimat Glomerular Filtration Rate 57 Result Diagram: 03/26/17 0136 03/26/17 0136 Imaging Last Impressions Lower Extremity Ultrasound 03/26/17 0000 Signed Impressions: Service Date/Time: Sunday, March 26, 2017 10:35 - CONCLUSION: Normal examination. No evidence DVT Casper Martino MD Chest X-Ray 03/25/1731 Signed Impressions: Service Date/Time: Saturday, March 25, 2017 07:40 - CONCLUSION: Mild cardiac silhouette enlargement. No acute cardiopulmonary disease identified. Ad Trimble MD CT Angiography 03/25/17730 Signed Impressions: Service Date/Time: Saturday, March 25, 2017 08:30 - CONCLUSION: 1. Evidence of pulmonary emboli in the posterior branches of the left lower lobe. 2. Coronary artery calcification. 3. Very small bilateral pleural effusions and possible mild pulmonary edema. Ad Trimble MD Assessment and Plan Problem List: (1) Pulmonary emboli ICD Codes: I26.99 - Other pulmonary embolism without acute cor pulmonale Status: Acute Plan: 61 y/o M s/p recent heart surgery, known Hx of Afib visiting from [place] consulted for Afib with RVR in the setting of Pulmonary Emboli. He remains afebrile and hemodynamically stable. Reports improvement of SOB, ambulating without difficulty and uncontrolled Afib. Recommendations: 1. 2Decho 2. Cont rate control 3. Cont Anticoagulation transition to Coumadin 4. Cont home cardiac medications ( Request [place] records) 5. Avoid electrolytes abnormalities 6. 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
--- NOTE | 2017-03-26 15:08 | ECHRPT ---
Indication: Heart failure CONCLUSIONS The left ventricular systolic function is severely reduced with an estimated ejection fraction 20%. Mildly dilated left ventricle. Wall thickness is measured at the upper limits of normal. Mild thickening of the mitral valve leaflets. Mild mitral valve regurgitation. Calcification of the left coronary cusp. Calcification of the non-coronary cusp. There is moderate tricuspid regurgitation. There is estimated [id number] pulmonary hypertension present (range 60-70 mmHg). The inferior vena cava is dilated. BP: 116 / 89 HR: 96 Rhythm: Atrial fibrillation MEASUREMENTS (Male / Female) Normal Values Technical Quality:Good 2D ECHO LV Diastolic Diameter PLAX 5.8 cm 4.2 - 5.9 / 3.9 - 5.3 cm LV Systolic Diameter PLAX 5.5 cm IVS Diastolic Thickness 1.3 cm 0.6 - 1.0 / 0.6 - 0.9 cm LVPW Diastolic Thickness 1.3 cm 0.6 - 1.0 / 0.6 - 0.9 cm LV Relative Wall Thickness 0.5 RV Internal Dim ED PLAX 2.8 cm LVOT Diameter 2.0 cm LA Systolic Diameter LX 4.5 cm 3.0 - 4.0 / 2.7 - 3.8 cm LV Ejection Fraction MOD 4C 13.1 % LV Cardiac Index MOD 4C 1671.0 cm/minm LV Ejection Fraction 4C AL 12.1 % LV Cardiac Index 4C AL 1601.0 cm/minm M-MODE Aortic Root Diameter MM 3.2 cm LA Systolic Diameter MM 4.1 cm LA Ao Ratio MM 1.3 AV Cusp Separation MM 1.3 cm DOPPLER AV Peak Velocity 194.2 cm/s AV Peak Gradient 15.1 mmHg AV Mean Gradient 8.7 mmHg AV Velocity Time Integral 30.0 cm LVOT Peak Velocity 90.0 cm/s LVOT Peak Gradient 3.2 mmHg LVOT Velocity Time Integral 11.9 cm LVOT Cardiac Index 1453.6 cm/minm AV Area Cont Eq vti 1.2 cm AV Area Cont Eq pk 1.5 cm MV Peak Velocity 207.0 cm/s MV Peak Gradient 17.1 mmHg MV Mean Velocity 86.9 cm/s MV Mean Gradient 4.0 mmHg MV Area PHT 4.6 cm TR Peak Velocity 358.0 cm/s TR Peak Gradient 51.3 mmHg Right Atrial Pressure 10.0 mmHg Pulmonary Artery Systolic Pressu 61.3 mmHg Right Ventricular Systolic Press 61.3 mmHg PV Peak Velocity 121.0 cm/s PV Peak Gradient 5.9 mmHg FINDINGS LEFT VENTRICLE The left ventricular systolic function is severely reduced with an estimated ejection fraction less than 20%. Mildly dilated left ventricle. Wall thickness is measured at the upper limits of normal. RIGHT VENTRICLE Normal right ventricular size and systolic function. LEFT ATRIUM The left atrial size is normal. RIGHT ATRIUM The right atrial size is normal. ATRIAL SEPTUM Normal atrial septal thickness without atrial level shunting by limited color doppler interrogation. AORTA The aortic root and proximal ascending aorta are normal in size on limited imaging. MITRAL VALVE Mild thickening of the mitral valve leaflets. Mild mitral valve regurgitation. AORTIC VALVE Trileaflet aortic valve. Calcification of the left coronary cusp. Calcification of the non-coronary cusp. TRICUSPID VALVE Structurally normal tricuspid valve. There is moderate tricuspid regurgitation. There is estimated [id number] pulmonary hypertension present (range 60-70 mmHg). . PULMONARY VALVE No pulmonary valve regurgitation or stenosis. VESSELS The inferior vena cava is dilated. PERICARDIUM No pericardial effusion. Antonio Arnett MD (Electronically Signed) Final Date:26 March 2017 15:07
--- NOTE | 2017-03-26 15:11 | EKG ---
Date Performed: 03/25/2017 Time Performed: 13:51:14 PTAGE: 61 years EKG: Atrial fibrillation with rapid ventricular response with multifocal PVCs or aberrant ventri cular conduction Lateral T wave changes are nonspecific Since previous tracing, no significant change noted Abnormal ECG PREVIOUS TRACING : 03/25/2017 07.20 DOCTOR: Leif Winchester Interpretating Date/Time 03/26/2017 15:09:57
--- NOTE | 2017-03-26 15:48 | EKG ---
Date Performed: 03/26/2017 Time Performed: 01:45:18 PTAGE: 61 years EKG: Atrial fibrillation with PVC(s) or aberrant ventricular conduction Lateral T wave changes m ay be due to myocardial ischemia Since previous tracing, no significant change noted Abnormal ECG PREVIOUS TRACING : 03/25/2017 13.51 DOCTOR: Leif Winchester Interpretating Date/Time 03/26/2017 15:47:10
[2017-03-26] MEDS: HEPARIN-D5W 25,000 U/250 ML 250 ML IV PRN (16:27)
[2017-03-26] MEDS: ALPRAZolam 0.25 MG TAB PO ONE (22:14)
[2017-03-27] VITALS (10 sets, daily range): BP systolic 101–129; BP diastolic 69–97; PULSE 78–100; RESP 16–18; TEMP 97.6–97.7; O2SAT 96–97
[2017-03-27] MEDS: DILTIAZEM HCL 30 MG TAB PO SCH ×2 (00:30→06:04)
[2017-03-27] MEDS: SODIUM CHLORIDE 0.9% FLUSH 10 ML FLUSH IV FLUSH SCH (08:14)
[2017-03-27] MEDS: DOCUSATE SODIUM 50 MG/SENNA 8.6 MG TAB PO SCH (08:14)
--- NOTE | 2017-03-27 08:32 | HHI.PR ---
Subjective Remarks This is a pleasant 61 y/o Male with CAD status post CABG six months ago, he has Atrial Fibrillation non anticoagulated who came to ER with worsening shortness of breath, found with Atrial Fibrillation with RVR, CTA showed pulmonary emboli in the posterior branches of the left lower lobe. Discussed with nurse the patient is been evaluated by Hematology and Oncology Doctor Jero awaiting final recommendations for discharge was told the nurse to call Doctor Jero for discharge now. as per Doctor Jero okay to discharge also Cardiology cleared for discharge, will go on Eliquis and Cardizem by mouth. given scripts no complaint. Echocardiogram performed Ejection fraction 20%, Mildly dilated left ventricle, moderate to severe Pulmonary hypertension range 60-70 mm Hg. Inferior vena cava dilated Objective Vital Signs Date Time Temp Pulse Resp B/P (MAP) Pulse Ox O2 Delivery O2 Flow Rate FiO2 03/27/17 08:12 97 Room Air 03/27/17 07:54 97.6 82 18 101/69 (80) 97 03/27/17 06:00 88 03/27/17 05:00 84 03/27/17 04:00 100 Room Air 03/27/17 04:00 94 03/27/17 04:00 97.7 94 18 96 03/27/17 03:00 90 03/27/17 02:00 86 03/27/17 01:00 88 03/27/17 00:24 97.6 78 16 129/97 (108) 96 03/27/17 00:00 100 Room Air 03/27/17 00:00 94 03/26/17 21:49 100 Room Air 03/26/17 20:13 84 03/26/17 20:00 97.7 60 19 121/86 (98) 100 03/26/17 19:51 21 03/26/17 18:39 98.4 100 18 144/75 (98) 99 03/26/17 17:01 86 03/26/17 16:01 92 03/26/17 15:45 98.1 78 18 104/80 (88) 97 03/26/17 15:00 96 03/26/17 14:00 92 03/26/17 13:00 96 03/26/17 12:00 92 03/26/17 11:43 97.8 80 18 116/87 (97) 96 03/26/17 11:01 89 03/26/17 10:31 95 03/26/17 10:00 92 03/26/17 09:00 98 I/O 03/26/17 03/26/17 03/26/17 03/27/17 03/27/17 03/27/17 07:00 15:00 23:00 07:00 15:00 23:00 Intake Total 1521 ml 222 ml 540 ml Output Total 1400 ml Balance 121 ml 222 ml 540 ml Intake Oral 1170 ml 540 ml IV Total 351 ml 222 ml Output Urine Total 1400 ml # Voids 4 Result Diagram: 03/26/17 0136 03/26/17 0136 Imaging Last Impressions Lower Extremity Ultrasound 03/26/17 0000 Signed Impressions: Service Date/Time: Sunday, March 26, 2017 10:35 - CONCLUSION: Normal examination. No evidence DVT Casper Martino MD Chest X-Ray 03/25/17730 Signed Impressions: Service Date/Time: Saturday, March 25, 2017 07:40 - CONCLUSION: Mild cardiac silhouette enlargement. No acute cardiopulmonary disease identified. Ad Trimble MD CT Angiography 03/25/17730 Signed Impressions: Service Date/Time: Saturday, March 25, 2017 08:30 - CONCLUSION: 1. Evidence of pulmonary emboli in the posterior branches of the left lower lobe. 2. Coronary artery calcification. 3. Very small bilateral pleural effusions and possible mild pulmonary edema. Ad Trimble MD Procedures None Other Results Laboratory Tests Test 03/25/17 07:42 03/26/17 01:36 03/26/17 07:00 Prothrombin Time 12.6 SEC Prothromb Time International Ratio 1.2 RATIO Blood Urea Nitrogen 22 MG/DL 19 MG/DL Creatinine 1.30 MG/DL 1.27 MG/DL Random Glucose 104 MG/DL 93 MG/DL Total Protein 7.7 GM/DL Albumin 3.3 GM/DL Calcium Level 8.3 MG/DL 8.7 MG/DL Alkaline Phosphatase 115 U/L Aspartate Amino Transf (AST/SGOT) 38 U/L Alanine Aminotransferase (ALT/SGPT) 54 U/L Total Bilirubin 0.6 MG/DL Sodium Level 141 MEQ/L 140 MEQ/L Potassium Level 4.3 MEQ/L 4.2 MEQ/L Chloride Level 108 MEQ/L 107 MEQ/L Carbon Dioxide Level 25.5 MEQ/L 26.4 MEQ/L B-Type Natriuretic Peptide 270 PG/ML White Blood Count 7.8 TH/MM3 Red Blood Count 4.15 MIL/MM3 Hemoglobin 13.6 GM/DL Hematocrit 39.8 % Mean Corpuscular Volume 95.9 FL Mean Corpuscular Hemoglobin 32.7 PG Mean Corpuscular Hemoglobin Concent 34.1 % Red Cell Distribution Width 14.9 % Platelet Count 250 TH/MM3 Mean Platelet Volume 8.5 FL Neutrophils (%) (Auto) 51.6 % Lymphocytes (%) (Auto) 36.9 % Monocytes (%) (Auto) 9.5 % Eosinophils (%) (Auto) 1.4 % Basophils (%) (Auto) 0.6 % Neutrophils # (Auto) 4.0 TH/MM3 Lymphocytes # (Auto) 2.9 TH/MM3 Monocytes # (Auto) 0.7 TH/MM3 Eosinophils # (Auto) 0.1 TH/MM3 Basophils # (Auto) 0.0 TH/MM3 CBC Comment DIFF FINAL Differential Comment Anion Gap 7 MEQ/L Estimat Glomerular Filtration Rate 57 ML/MIN Activated Partial Thromboplast Time 58.3 SEC Total Creatine Kinase 57 U/L Troponin I 0.06 NG/ML Objective Remarks GENERAL: NAD SKIN: Warm and dry. HEAD: Normocephalic. EYES: No scleral icterus. No injection or drainage. NECK: Supple, trachea midline. No JVD or lymphadenopathy. CARDIOVASCULAR: Irregular Regular rate and rhythm without murmurs, gallops, or rubs. RESPIRATORY: Breath sounds equal bilaterally. No accessory muscle use. GASTROINTESTINAL: Abdomen soft, non-tender, nondistended. MUSCULOSKELETAL: No cyanosis, or edema. BACK: Nontender without obvious deformity. No CVA tenderness. Medications and IVs Current Medications Medications (Trade) Dose Ordered Sig/Linwood Route Start Time Stop Time Status Last Admin Heparin Sodium/ Dextrose 250 ml @ 18 mls/hr TITRATE PRN IV 03/25/17 09:30 03/26/17 16:27 (NS Flush) 2 ml UNSCH PRN IV FLUSH 03/25/17 11:30 (NS Flush) 2 ml BID IV FLUSH 03/25/17 21:00 03/26/17 08:35 (Tylenol) 650 mg Q4H PRN PO 03/25/17 11:30 (Zofran Inj) 4 mg Q6H PRN IVP 03/25/17 11:30 (Narcan Inj) 0.4 mg UNSCH PRN IV PUSH 03/25/17 11:30 (Zoila-Colace) 1 tab BID PO 03/25/17 21:00 (Milk Of Magnesia Liq) 30 ml Q12H PRN PO 03/25/17 11:30 (Senokot) 17.2 mg Q12H PRN PO 03/25/17 11:30 (Dulcolax Supp) 10 mg DAILY PRN RECTAL 03/25/17 11:30 (Lactulose Liq) 30 ml DAILY PRN PO 03/25/17 11:30 (Cardizem) 30 mg Q6HR PO 03/25/17 13:45 03/27/17 06:04 (Aspirin) 325 mg DAILY PO 03/25/17 13:45 03/26/17 08:35 (Morphine Inj) 2 mg Q3H PRN IV PUSH 03/25/17 13:30 03/26/17 01:36 A/P Assessment and Plan Pulmonary embolism from Heparin to Eliquis and will go home at this time. Atrial fibrillation with RVR CAD status post CABG six months ago, CTA showed pulmonary emboli in the posterior branches of the left lower lobe. Cardiology cleared for discharge, will go on Eliquis and Cardizem by mouth. given scripts no complaint. Echocardiogram performed Ejection fraction 20%, Mildly dilated left ventricle, moderate to severe Pulmonary hypertension range 60-70 mm Hg. Inferior vena cava dilated Coronary artery disease Patient reports he is status post 2 valve replacements and CABG 4 but that he was not supposed to be on any medications Acute mood disorder as per Psychiatry patient with adjustment disorder, and Depression no barriers for the patient to take his own decisions. DVT prophylaxis:Heparin Discharge Planning Okay to discharge now. Francisco Javier Chand MD Mar 27, 2017 08:32
[2017-03-27] MEDS ORDERED: APIX5TAB PO (09:00)
[2017-03-27] MEDS ORDERED: APIXABAN 5 MG TABLET PO SCH (09:00)
[2017-03-27] MEDS: ASPIRIN 325 MG TAB PO SCH (09:15)
--- NOTE | 2017-03-27 09:23 | PD.CARD.PN ---
Subjective Subjective Remarks no complaints "I want to go home" Objective Medications Current Medications Medications (Trade) Dose Ordered Sig/Linwood Route Start Time Stop Time Status Last Admin (NS Flush) 2 ml UNSCH PRN IV FLUSH 03/25/17 11:30 (NS Flush) 2 ml BID IV FLUSH 03/25/17 21:00 03/26/17 08:35 (Tylenol) 650 mg Q4H PRN PO 03/25/17 11:30 (Zofran Inj) 4 mg Q6H PRN IVP 03/25/17 11:30 (Narcan Inj) 0.4 mg UNSCH PRN IV PUSH 03/25/17 11:30 (Zoila-Colace) 1 tab BID PO 03/25/17 21:00 (Milk Of Magnesia Liq) 30 ml Q12H PRN PO 03/25/17 11:30 (Senokot) 17.2 mg Q12H PRN PO 03/25/17 11:30 (Dulcolax Supp) 10 mg DAILY PRN RECTAL 03/25/17 11:30 (Lactulose Liq) 30 ml DAILY PRN PO 03/25/17 11:30 (Cardizem) 30 mg Q6HR PO 03/25/17 13:45 03/27/17 06:04 (Aspirin) 325 mg DAILY PO 03/25/17 13:45 03/27/17 09:15 (Morphine Inj) 2 mg Q3H PRN IV PUSH 03/25/17 13:30 03/26/17 01:36 (Eliquis) 10 mg BID PO 03/27/17 09:00 03/27/17 09:15 Vital Signs / I&O Vital Signs Date Time Temp Pulse Resp B/P (MAP) Pulse Ox O2 Delivery O2 Flow Rate FiO2 03/27/17 08:12 97 Room Air 03/27/17 07:54 97.6 82 18 101/69 (80) 97 03/27/17 06:00 88 03/27/17 05:00 84 03/27/17 04:00 100 Room Air 03/27/17 04:00 94 03/27/17 04:00 97.7 94 18 96 03/27/17 03:00 90 03/27/17 02:00 86 03/27/17 01:00 88 1/16/18 00:24 97.6 78 16 129/97 (108) 96 03/27/17 00:00 100 Room Air 03/27/17 00:00 94 03/26/17 21:49 100 Room Air 03/26/17 20:13 84 03/26/17 20:00 97.7 60 19 121/86 (98) 100 03/26/17 19:51 21 03/26/17 18:39 98.4 100 18 144/75 (98) 99 03/26/17 17:01 86 03/26/17 16:01 92 03/26/17 15:45 98.1 78 18 104/80 (88) 97 03/26/17 15:00 96 03/26/17 14:00 92 03/26/17 13:00 96 03/26/17 12:00 92 03/26/17 11:43 97.8 80 18 116/87 (97) 96 03/26/17 11:01 89 03/26/17 10:31 95 03/26/17 10:00 92 I/O 03/26/17 03/26/17 03/26/17 03/27/17 03/27/17 03/27/17 07:00 15:00 23:00 07:00 15:00 23:00 Intake Total 1521 ml 222 ml 540 ml Output Total 1400 ml Balance 121 ml 222 ml 540 ml Intake Oral 1170 ml 540 ml IV Total 351 ml 222 ml Output Urine Total 1400 ml # Voids 4 Physical Exam GENERAL: Well-nourished, well-developed patient. SKIN: Warm and dry. HEAD: Normocephalic. EYES: No scleral icterus. No injection or drainage. NECK: Supple, trachea midline. No JVD or lymphadenopathy. CARDIOVASCULAR: IrrIrr without murmurs, gallops, or rubs. RESPIRATORY: Breath sounds equal bilaterally. No accessory muscle use. GASTROINTESTINAL: Abdomen soft, non-tender, nondistended. EXTREMITIES: No cyanosis, or edema. NEUROLOGICAL: Awake, alert, and oriented x 3. Non-focal. Imaging Last Impressions Lower Extremity Ultrasound 03/26/17 0000 Signed Impressions: Service Date/Time: Sunday, March 26, 2017 10:35 - CONCLUSION: Normal examination. No evidence DVT Casper Martino MD Chest X-Ray 03/25/17 0731 Signed Impressions: Service Date/Time: Saturday, March 25, 2017 07:40 - CONCLUSION: Mild cardiac silhouette enlargement. No acute cardiopulmonary disease identified. Ad Trimble MD CT Angiography 03/25/17 0731 Signed Impressions: Service Date/Time: Saturday, March 25, 2017 08:30 - CONCLUSION: 1. Evidence of pulmonary emboli in the posterior branches of the left lower lobe. 2. Coronary artery calcification. 3. Very small bilateral pleural effusions and possible mild pulmonary edema. Ad Trimble MD Assessment and Plan Problem List: (1) Pulmonary emboli ICD Codes: I26.99 - Other pulmonary embolism without acute cor pulmonale Status: Acute Plan: 61 y/o M s/p recent heart surgery, known Hx of Afib visiting from NH consulted for Afib with RVR in the setting of Pulmonary Emboli. He remains afebrile and hemodynamically stable. Reports improvement of SOB, ambulating without difficulty. EF 20% Recommendations: 1. Cont rate control 2. Cont Anticoagulation 3. Cont home cardiac medications (Request NH records) 4. Avoid electrolytes abnormalities 5. Regarding EF 20%, this appears to be chronic. Cont ASA, BB, ACEi and statins (mindful of BP) 5. F/U with his [facility] upon discharge (2) CHF (congestive heart failure) ICD Codes: I50.9 - Heart failure, unspecified Status: Acute (3) Atrial fibrillation with RVR ICD Codes: I48.91 - Unspecified atrial fibrillation Status: Acute (4) Acute adjustment disorder with depressed mood ICD Codes: F43.21 - Adjustment disorder with depressed mood Problem Qualifiers (1) Pulmonary emboli: Qualified Codes: I26.99 - Other pulmonary embolism without acute cor pulmonale (2) CHF (congestive heart failure): Qualified Codes: I50.9 - Heart failure, unspecified Antonio Arnett MD Mar 27, 2017 09:23
[2017-03-27] MEDS ORDERED: DILT31TA PO (09:36)
--- NOTE | 2017-03-27 10:00 | HHI.DS ---
Discharge Summary Admission Date Mar 25, 2017 at 10:17 Discharge Date: Mar 27, 2017 Admitting Diagnosis Afib with RVR, PE (1) Pulmonary emboli ICD Code: I26.99 - Other pulmonary embolism without acute cor pulmonale Diagnosis: Principal Status: Acute (2) Atrial fibrillation with RVR ICD Code: I48.91 - Unspecified atrial fibrillation Diagnosis: Principal Status: Acute Procedures None Brief History - From Admission 61-year-old male with a past medical history significant for CAD status post CABG 6 months ago and a lifelong history of atrial fibrillation not on any anticoagulation presents to the emergency department with a one-week history of worsening shortness of breath. The patient reports that he has extreme shortness of breath when lying down that is interfering with his sleep. He also states he has dyspnea on exertion. He reports he just recovered from an upper respiratory infection. The patient was found to be in atrial fibrillation with RVR on arrival to the emergency department. He was given 1 dose of IV diltiazem with subsequent weight control. CTA showed pulmonary emboli in the posterior branches of the left lower lobe. CBC/BMP: 03/26/17 0136 03/26/17 0136 Significant Findings Laboratory Tests Test 03/25/17 07:42 03/25/17 18:15 03/26/17 01:36 03/26/17 07:00 Monocytes (%) (Auto) 10.5 % (0.0-8.0) 9.5 % (0.0-8.0) Prothrombin Time 12.6 SEC (9.8-11.6) Blood Urea Nitrogen 22 MG/DL (7-18) 19 MG/DL (7-18) Albumin 3.3 GM/DL (3.4-5.0) Calcium Level 8.3 MG/DL (8.5-10.1) Aspartate Amino Transf (AST/SGOT) 38 U/L (15-37) Chloride Level 108 MEQ/L (98-107) Estimat Glomerular Filtration Rate 56 ML/MIN (>89) 57 ML/MIN (>89) B-Type Natriuretic Peptide 270 PG/ML (0-100) Activated Partial Thromboplast Time 77.3 SEC (24.3-30.1) 52.7 SEC (24.3-30.1) 58.3 SEC (24.3-30.1) Red Blood Count 4.15 MIL/MM3 (4.50-5.90) Troponin I 0.06 NG/ML (0.02-0.05) 0.06 NG/ML (0.02-0.05) Imaging Last Impressions Lower Extremity Ultrasound 03/26/17 0000 Signed Impressions: Service Date/Time: Sunday, March 26, 2017 10:35 - CONCLUSION: Normal examination. No evidence DVT Casper Martino MD Chest X-Ray 03/25/1731 Signed Impressions: Service Date/Time: Saturday, March 25, 2017 07:40 - CONCLUSION: Mild cardiac silhouette enlargement. No acute cardiopulmonary disease identified. Ad Trimble MD CT Angiography 03/25/1731 Signed Impressions: Service Date/Time: Saturday, March 25, 2017 08:30 - CONCLUSION: 1. Evidence of pulmonary emboli in the posterior branches of the left lower lobe. 2. Coronary artery calcification. 3. Very small bilateral pleural effusions and possible mild pulmonary edema. Ad Trimble MD PE at Discharge GENERAL: NAD SKIN: Warm and dry. HEAD: Normocephalic. EYES: No scleral icterus. No injection or drainage. NECK: Supple, trachea midline. No JVD or lymphadenopathy. CARDIOVASCULAR: Irregular Regular rate and rhythm without murmurs, gallops, or rubs. RESPIRATORY: Breath sounds equal bilaterally. No accessory muscle use. GASTROINTESTINAL: Abdomen soft, non-tender, nondistended. MUSCULOSKELETAL: No cyanosis, or edema. BACK: Nontender without obvious deformity. No CVA tenderness. Hospital Course This is a pleasant 61 y/o Male with CAD status post CABG six months ago, he has Atrial Fibrillation non anticoagulated who came to ER with worsening shortness of breath, found with Atrial Fibrillation with RVR, CTA showed pulmonary emboli in the posterior branches of the left lower lobe. Discussed with nurse the patient is been evaluated by Hematology and Oncology Doctor Jero awaiting final recommendations for discharge was told the nurse to call Doctor Nogueira for discharge now. as per Doctor Nogueira okay to discharge also Cardiology cleared for discharge, will go on Eliquis and Cardizem by mouth. given scripts no complaint. Echocardiogram performed Ejection fraction 20%, Mildly dilated left ventricle, moderate to severe Pulmonary hypertension range 60-70 mm Hg. Inferior vena cava dilated Assessment and Plan Pulmonary embolism from Heparin to Eliquis and will go home at this time. Follow with desktop specialist as outpatient Doctor Jero in one week. Atrial fibrillation with RVR CAD status post CABG six months ago, CTA showed pulmonary emboli in the posterior branches of the left lower lobe. Cardiology cleared for discharge, will go on Eliquis and Cardizem by mouth. given scripts no complaint. Echocardiogram performed Ejection fraction 20%, Mildly dilated left ventricle, moderate to severe Pulmonary hypertension range 60-70 mm Hg. Inferior vena cava dilated, follow with health communications specialist Doctor Hope in 3 to 5 days. Chronic systolic heart failure with Ejection fraction 20%, will need to follow with health communications specialist May need Defibrillator placement. Coronary artery disease Patient reports he is status post 2 valve replacements and CABG 4 but that he was not supposed to be on any medications Acute mood disorder as per Psychiatry patient with adjustment disorder, and Depression no barriers for the patient to take his own decisions. DVT prophylaxis:Heparin Discharge Planning Okay to discharge now. Pt Condition on Discharge: Good Discharge Disposition: Discharge Home Discharge Time: <= 30 minutes Discharge Instructions DIET: Follow Instructions for: Heart Healthy Diet Activities you can perform: Regular-No Restrictions Francisco Javier Chand MD Mar 27, 2017 10:00
--- NOTE | 2017-03-27 12:23 | PD.ONC.PN ---
Subjective Subjective Remarks Late entry, Patient seen at 8:30AM. Patient told nurse at 8AM this morning that he was planning to leave at 9AM whether he received his discharge paperwork or not. When I went to see the patient he confirmed that that was correct, he was leaving. We discussed starting anticoagulation with Eliquis. The patient stated he did not want to change to a different blood thinner as he has been on coumadin previously. We discussed that the coumadin would take three days to bridge and that he might have to be in the hospital longer for a safe discharge. Myself and Dr. Nogueira recommended that he start Eliquis if he planned to leave today. He stated he was going to drive straight to [place] without stopping and would see his doctors as soon as he arrived. After much back and forth discourse, the patient agreed to take the Eliquis and to fill a script for a couple Eliquis to get him through until he can see his physicians in [place] and be bridged back to coumadin. Objective Data Date Time Temp Pulse Resp B/P (MAP) Pulse Ox O2 Delivery O2 Flow Rate FiO2 03/27/17 08:12 97 Room Air 03/27/17 07:54 97.6 82 18 101/69 (80) 97 03/27/17 07:00 100 03/27/17 06:00 88 03/27/17 05:00 84 03/27/17 04:00 100 Room Air 03/27/17 04:00 94 03/27/17 04:00 97.7 94 18 96 03/27/17 03:00 90 03/27/17 02:00 86 03/27/17 01:00 88 03/27/17 00:24 97.6 78 16 129/97 (108) 96 03/27/17 00:00 100 Room Air 03/27/17 00:00 94 03/26/17 21:49 100 Room Air 03/26/17 20:13 84 03/26/17 20:00 97.7 60 19 121/86 (98) 100 03/26/17 19:51 21 03/26/17 18:39 98.4 100 18 144/75 (98) 99 03/26/17 17:01 86 03/26/17 16:01 92 03/26/17 15:45 98.1 78 18 104/80 (88) 97 03/26/17 15:00 96 03/26/17 14:00 92 03/26/17 13:00 96 03/27/17 03/27/17 03/27/17 07:00 15:00 23:00 Intake Total 540 ml Balance 540 ml Result Diagram: 03/26/17 0136 03/26/17 0136 Objective Remarks GENERAL: Middle aged male, sitting up on side of bed, irritable. SKIN: Warm and dry. HEAD: Normocephalic. EYES: No injection or drainage. NECK: Supple, trachea midline. CARDIOVASCULAR: IRR RESPIRATORY: diminished at bases, anterior coker clear. GASTROINTESTINAL: Abdomen soft, non-tender, nondistended. EXTREMITIES: No cyanosis NEUROLOGICAL: awake and alert, normal speech. moving all extremities. Assessment/Plan Assessment 61y/o male admitted with Atrial fibrillation. Hematology consulted for pulmonary embolism/anticoagulation recommendations. Plan 1. patient clear for discharge. 2. Give Eliquis now prior to discharge, Rx written for Eliquis 10mg PO BID, 3 pills. 3. patient advised to follow up with his own physicians immediately upon return to [place]. Attending Statement The exam, history, and the medical decision-making described in the above note were completed with the assistance of the mid-level provider. I reviewed and agree with the findings presented. I attest that I had a [id number] encounter with the patient on the same day, and personally performed and documented my assessment and findings in the medical record. Late entry Pt was seen around 8am wants to leave [facility] AMA. agree to take Eliquis. will go to [place] as soon as he is d/c d/w pt and RN clear for d/c Lindsay Gonzalez Mar 27, 2017 12:23 Karan Nogueira MD Mar 27, 2017 18:34
--- NOTE | 2017-03-27 14:43 | MB ---
cc: BERTA IZQUIERDO M.D. DATE OF CONSULTATION 03/26/2017 REASON FOR CONSULTATION Consult requested by hospitalist for evaluation of pulmonary embolism. HISTORY OF PRESENT ILLNESS This is a 61-year-old male. He is a visitor from [place]. He came to see his sister. He recently had an upper respiratory infection and flu-like symptoms. However, he noticed that he has trouble breathing and has shortness of breath and palpitations. He came into the emergency room with these symptoms. The patient was found to have atrial fibrillation with RVR. He was given IV Cardizem and his heart rate came back under control. He had a CT angiogram of the chest which showed pulmonary embolism and posterior branches of the left lower lobe. The patient was started on heparin. I have been asked to see him for further evaluation. The patient denies any previous history of thromboembolic disease. He denies any family history of thromboembolic disease. He stated that he had a history of coronary artery disease and underwent coronary artery bypass surgery [address] [facility] in [place]. He also has a history of atrial fibrillation and he was treated with Coumadin but his INR did not go up above 1.5 in spite of increasing the Coumadin doses. Therefore he was advised not to take the blood thinners according to him. The patient is anxious to go home. She wants to go back to [facility]. He denies any chest pains. He is waiting to be evaluated by [facility]. The rest of the review of systems is negative. PAST MEDICAL HISTORY 1. Atrial fibrillation. 2. Coronary artery disease PAST SURGICAL HISTORY Coronary artery bypass surgery 6 months ago. ALLERGIES None. MEDICATIONS Prior to coming into the hospital were none. FAMILY HISTORY No family history of thromboembolic disease. SOCIAL HISTORY The patient does not smoke cigarettes, does not drink alcohol. PHYSICAL EXAMINATION GENERAL: He is a well-developed, well-nourished white male in no apparent distress. VITAL SIGNS: Temperature 98.1, heart rate is 78, blood pressure of 104/80, O2 saturation 97% on room air. HEENT: PERRLA, EOMI, anicteric. No oral lesions noted. NECK: No lymphadenopathy noted. LUNGS: Clear. No wheezing, rhonchi or rales. HEART: Irregularly irregular. ABDOMEN: Soft, nontender. No hepatosplenomegaly. EXTREMITIES: No pedal edema. NEUROLOGY: Awake, alert, oriented x 3. SKIN: No significant lesions noted. ASSESSMENT 1. First episode of pulmonary embolism with no DVT. 2. Coronary artery disease status post coronary artery bypass surgery about 6 months ago. 3. Chronic atrial fibrillation, was on Coumadin but was taken off as the INR remains subtherapeutic. PLAN I have reviewed his available records and I have discussed with the patient regarding the pulmonary embolism. This is an unprovoked first episode. He had a Doppler ultrasound of both lower legs which does not show any evidence of DVT. He has no family history of thromboembolic disease. I have recommended to get the hypercoagulable panel in 2-3 months when the acute event is off. The patient is anxious to go back to [place] tomorrow. He states that he had cardiac surgery at [facility] in [place] and he wants to go back to see them. Currently he is on heparin. He was advised that it is not safe for him to travel with the pulmonary embolism. My recommendation is to start him on Eliquis tomorrow and if he is able to tolerate it well, then he could be discharged on Eliquis. The patient stated that he was on Coumadin but his INR never went up above 1.5. Therefore, they have advised him not to take the Coumadin but they did not recommended other anticoagulant either, according to him. Those records are not available. The patient states that he does not want to stay here. He just was visiting his sister and he wants to go back to [place] as soon as possible. Thank you for asking my opinion. MD RIVAS Ferguson/MEGHANN /9:16 PM /12:15 PM
== END 2017-03-27 09:46 | disposition home or self-care (01) | DRG 308 ==
LOC: NEPE 07:05 → NEDA 10:17 → HCPC 12:10 → HCIN 03-26 18:32
PROVIDERS: ADMIT Internal Medicine; ATTEND Internal Medicine
DX: I48.2 Chronic atrial fibrillation (principal); I26.99 Other pulmonary embolism without acute cor pulmonale; I50.22 Chronic systolic (congestive) heart failure; I27.20 Pulmonary hypertension, unspecified; I25.10 Atherosclerotic heart disease of native coronary artery without angina pectoris; F43.21 Adjustment disorder with depressed mood; Z95.2 Presence of prosthetic heart valve; Z95.1 Presence of aortocoronary bypass graft
CPT/HCPCS: 71045; 71275; 80048; 80053; 82550; 82948; 83880; 84484; 85025; 85610; 85730; 93005; 93306; 93970; 96374; 96375; J1644; J2270; Q9967